=== PATIENT | female | born 1940 | race Caucasian/White ===

== ENCOUNTER → 2017-05-23 | Outpatient (CLI) | payer OTHER, MEDICARE | LOC: FIMAGING 14:26 | PROVIDERS: ATTEND Family Medicine | DX: Z12.31 Encounter for screening mammogram for malignant neoplasm of breast (principal) | CPT/HCPCS: G0202 ==

== ENCOUNTER 2018-02-15 09:19 | Day surgery (SDC) | payer OTHER, MEDICARE ==
[2018-02-15] MEDS ORDERED: LIDOCAINE 1% 300 MG/30 ML SDV SC ONE (09:22)
--- NOTE | 2018-02-15 10:17 | PDHPUP ---
History & Physical Update H&P update statement: This history and physical update is based on an assessment of the patient which was completed after admission or registration (within 24 hours), but prior to the surgery/procedure. Patient was last seen in the outpatient setting (01-05-18) with plans at that time to pursue LINQ explant. No new cardiovascular complaints AVNRT history s/p ablation (2015), TIA (on Plavix), HTN, HLP, and ovarian cancer history. Physical examination without new changes noted. H&P update: no change in patient's condition since H&P completed, changes noted
--- NOTE | 2018-02-15 10:18 | PDPROPOC ---
Sedation Plan of Care Sedation Plan of Care: vital signs stable, mental status noted, patient educated of risks, benefits, alternatives, patient can tolerate sedation ASA Classification: ASA 1 Planned drugs: fentanyl, midazolam Mallampati Score: Class 1 Mallampati Reference Image: Patient passed 3-3-2 rule?: Yes
[2018-02-15] MEDS ORDERED: fentaNYL 100 MCG/2 ML INJ ONE (10:19)
--- NOTE | 2018-02-15 10:49 | SUROPNOTE ---
[facility] Operative Report - Surgery Procedure: LINQ explant Indication: End of life Procedure details: Consents were obtained, and given troublesome implant, we signed consents for both the procedure and sedation (we were not planning on using sedation, but signed the consents for this if needed). Lidocaine was used to the incision site, and a small #12 blade was used to make incision. After manipulation of the device, explant was easily performed. Three alvina were placed over the incision for closure. No complications No sedation was used, so patient can go home without monitoring.
== END 2018-02-15 10:49 | disposition home or self-care (01) ==
LOC: FCATH 09:19
PROVIDERS: ATTEND Internal Medicine Cardiovascular Disease
PROC: 0JPT02Z Removal of Monitoring Device from Trunk Subcutaneous Tissue and Fascia, Open Approach (ICD-10-PCS; principal; 2018-02-15)
DX: Z45.09 Encounter for adjustment and management of other cardiac device (principal); I10 Essential (primary) hypertension; E78.5 Hyperlipidemia, unspecified; Z86.73 Personal history of transient ischemic attack (TIA), and cerebral infarction without residual deficits; Z79.01 Long term (current) use of anticoagulants; Z85.43 Personal history of malignant neoplasm of ovary
CPT/HCPCS: J3010

== ENCOUNTER → 2018-05-24 | Outpatient (CLI) | payer OTHER, MEDICARE | LOC: FIMAGING 14:38 | PROVIDERS: ATTEND Family Medicine | DX: Z12.31 Encounter for screening mammogram for malignant neoplasm of breast (principal); Z85.43 Personal history of malignant neoplasm of ovary ==